=== PATIENT | male | born 1970 | race Caucasian/White ===

== ENCOUNTER 2019-01-28 18:58 | Emergency (ER) | payer BC ==
[2019-01-28 19:25] LABS: #Basophils 0.1 thou/uL (0.0-0.2); #Eosinphils 0.2 thou/uL (0.0-0.7); #Lymphocytes 2.9 thou/uL (1.20-3.40); #Monocytes 0.7 thou/uL (0.11-0.59); #Neutrophils 4.2 thou/uL (1.40-6.50); %Basophils 1.4 % (0.0-1.0); %Eosinophils 1.9 % (0.0-10.0); %Monocytes 8.2 % (0.0-10.0); %Neutrophils 52.5 % (42.0-75.0); Hemoglobin 15.4 g/dL (14.0-18.0); Mean Corpuscular HGB CONC 32.8 g/dL (32.0-36.0); Mean Corpuscular Hemoglobin 30.8 pg (27.0-31.0); Mean Corpuscular Volume 93.7 fL (78.0-98.0); Mean Platelet Volume 8.6 fL (7.4-10.4); Platelet Count 203 thou/uL (130-400); RBC Distribution Width 13.6 % (11.5-14.5); Red Blood Cell (RBC) Count 5.02 mill/uL (4.70-6.10)
[2019-01-28 19:39] LABS: ALT (SGPT) 32 U/L (8-55); AST (SGOT) 19 U/L (5-34); Albumin 4.7 g/dL (3.5-5.0); Alkaline Phosphatase 91 U/L (40-150); Anion Gap 17 mmol/L (10-20); BUN (Urea Nitrogen) 20 mg/dL (8.9-20.6); Bilirubin, Total Less than 0.2 mg/dL (0.2-1.2); CK (CPK) 40 U/L (30-200); Calc. Creatinine Clearance 0 mL/min (70-130); Calcium 9.8 mg/dL (7.8-10.44); Carbon Dioxide 25 mmol/L (22-29); Chloride 104 mmol/L (98-107); Estimated GFR-MDRD 72; Globulin 3.2 g/dL (2.4-3.5); Glucose 184 mg/dL (70-105); Lipase 29 U/L (8-78); Potassium 3.7 mmol/L (3.5-5.1); Protein, Total 7.9 g/dL (6.0-8.3); Sodium 142 mmol/L (136-145)
[2019-01-28] MEDS ORDERED: Aspirin Chewable 81 MG TAB ONE (20:16)
--- NOTE | 2019-01-28 20:46 | RAD ---
AP VIEW CHEST: 01/28/29 HISTORY: Chest pain. AP view chest is obtained on 01/28/19. AP view chest demonstrates the lungs to be well aerated. No evidence of active intrathoracic disease seen. No evidence of effusions, pneumonia, or pneumothorax seen. IMPRESSION: Unremarkable AP view chest. POS: [facility]
--- NOTE | 2019-01-28 20:51 | CT ---
CONTRAST ENHANCED CTA CHEST: 01/28/19 HISTORY: 48-year-old complaining of chest pain, left arm tingling. Contrast enhanced CTA chest performed. 2D and 3D reconstructed images performed on an independent 3D workstation. The lung parenchyma is unremarkable. No evidence of pleural or pericardial effusion seen. No evidence of aortic dissections or aneurysms seen. No evidence of filling defects seen in the pulmonary arteries to suggest pulmonary emboli. IMPRESSION: Normal CTA chest. POS: [facility]
== END 2019-01-28 20:30 | disposition short-term general hospital (02) ==
LOC: BURERS 18:58
DX: R07.2 Precordial pain (principal); E78.00 Pure hypercholesterolemia, unspecified; K21.9 Gastro-esophageal reflux disease without esophagitis; F41.9 Anxiety disorder, unspecified; F32.9 Major depressive disorder, single episode, unspecified
CPT/HCPCS: 71045; 71275; 80053; 82550; 83690; 84484; 85025; 93005; 94760